=== PATIENT | female | born 1990 | race Caucasian/White ===

== ENCOUNTER → 2016-07-10 | Outpatient (CLI) | payer BC ==
--- NOTE | 2016-07-10 14:30 | US ---
EXAMINATION TYPE: US pelvic complete DATE OF EXAM: 07/10/2016 2:17 PM COMPARISON: 05/22/2012 CLINICAL HISTORY: R10.31 Abd Pain, R10.2 Pelvic Pain. Pt states pelvic pain, more on right during int ercourse TECHNIQUE: Transabdominal (TA) Date of LMP: 06/19/2016 EXAM MEASUREMENTS: Uterus: 8.6 x 3.6 x 4.6 cm Endometrial Stripe: 0.2 cm Right Ovary: 4.0 x 3.7 x 2.2 cm Left Ovary: 3.0 x 2.7 x 1.7 cm 1. Uterus: Anteverted wnl 2. Endometrium: wnl 3. Right Ovary: Probable involuting cyst= 2.8 x 1.5 x 2.0 cm 4. Left Ovary: wnl 5. Bilateral Adnexa: wnl 6. Posterior cul-de-sac: wnl IMPRESSION: Right ovarian cyst. Follow-up is recommended
== END | disposition home or self-care (01) ==
LOC: RADUSWWP 13:47
PROVIDERS: ATTEND Family Medicine
DX: N83.201 Unspecified ovarian cyst, right side (principal)
CPT/HCPCS: 76856

== ENCOUNTER 2017-11-08 07:08 | Emergency (ER) | payer BC ==
[2017-11-08 07:14] VITALS: BP 121/68; PULSE 75; RESP 20; TEMP 98.3
--- NOTE | 2017-11-08 07:35 | ED ---
General Adult HPI - General Chief complaint: Extremity Problem,Nontraumatic Stated complaint: Foot Injury Time Seen by Provider: 11/08/17 07:21 Source: patient, RN notes reviewed Mode of arrival: ambulatory Limitations: no limitations - History of Present Illness Initial comments: Patient 27-year-old female presented to the emergency room today with chief complaint of pain and some swelling to the left foot. Denies any specific injury or trauma. States she started to feel some symptoms 4 days ago but symptoms got much worse 2 days ago when she noticed some swelling. States noticed some redness to the area today. States it is worse with movements of the left foot. Denies any known trauma or any insect bites or stings. Patient denies any recent fever, chills, shortness of breath, chest pain, back pain, abdominal pain, nausea or vomiting, numbness or tingling, headaches or visual changes, or any other complaints. - Related Data Previous Rx's Medication Instructions Recorded Cephalexin [Keflex] 500 mg PO Q12HR 10 Days cap 11/08/17 Allergies Allergy/AdvReac Type Severity Reaction Status Date / Time No Known Allergies Allergy Verified 11/08/17 08:10 Review of Systems ROS Statement: Those systems with pertinent positive or pertinent negative responses have been documented in the HPI. ROS Other: All systems not noted in ROS Statement are negative. Past Medical History Past Medical History: No Reported History History of Any Multi-Drug Resistant Organisms: None Reported Past Surgical History: Breast Surgery Past Psychological History: No Psychological Hx Reported Smoking Status: Never smoker Past Alcohol Use History: None Reported Past Drug Use History: None Reported General Exam Limitations: no limitations Course Vital Signs 11/08/17 07:12 Temperature 98.3 F Pulse Rate 75 Respiratory 20 Rate Blood Pressure 121/68 O2 Sat by Pulse 99 Oximetry Medical Decision Making - Medical Decision Making X-rays negative for any acute fracture dislocation results were discussed with the patient. Patient does have some mild redness and swelling to the foot. She 'll be started on antibiotics over for cellulitis. She is advised to watch for any streaking and return if symptoms increase or worsen. Disposition Clinical Impression: Cellulitis Disposition: HOME SELF-CARE Condition: Good Instructions: Cellulitis (ED) Additional Instructions: Please use medication as discussed. Please follow-up with family doctor in the next 2 days of symptoms have not improved. Please return to emergency room if the symptoms increase or worsen or for any other concerns. Prescriptions: Cephalexin [Keflex] 500 mg PO Q12HR 10 Days cap Is patient prescribed a controlled substance at d/c from ED?: No Referrals: Emerson Norton DO [Primary Care Provider] - 1-2 days Time of Disposition: 08:47
--- NOTE | 2017-11-08 08:06 | XR ---
EXAMINATION TYPE: XR foot complete LT DATE OF EXAM: 11/08/2017 COMPARISON: NONE HISTORY: 27-year-old female pain to first metatarsal area, swelling. TECHNIQUE: 3 views FINDINGS: No acute fracture, subluxation, or dislocation. No periostitis or osteolysis. No marginal erosion see n. Joint spaces throughout are maintained. IMPRESSION: No acute osseous abnormality seen.
== END 2017-11-08 08:47 | disposition home or self-care (01) ==
LOC: EC 07:08
DX: L03.116 Cellulitis of left lower limb (principal)
CPT/HCPCS: 99283